=== PATIENT | female | born 1955 ===

== ENCOUNTER → 2024-12-15 | Emergency (ER) | payer MEDICARE, MEDICAID ==
--- NOTE | 2024-12-15 09:23 | ERN ---
General Chief Complaint: Lower Extremity Pain/Injury Stated Complaint: LEFT LEG PAIN Time Seen by MD: 09:00 Source: patient History of Present Illness Initial Comments 69-year-old female came to ED with complaints of left leg pain. Pain started yesterday and was, severe about 6/10 on a pain scale. Patient took Motrim 800 mg this morning. Patient noticed left leg pain on and off for the last three months. Patient has a history of back surgeries and has neuropathy in both her legs. In the ED she states that she no longer has any pain. Her vitals look stable except for elevated blood pressure. Patient denies any leg swelling, trauma, falls, fever, abdominal pain. Patient has a past medical history of hypertension and hyperlipidemia. Allergies: Coded Allergies: No Known Drug Allergies (Unverified Allergy, Unknown, 12/15/24) Past Medical History Past Medical History: High Cholesterol, Hypertension, Other Medical History Other: back pain Past Surgical History: Other, Surgical History Other: back sx ROS Dictation ROS Dictation CONSTITUTIONAL: No chills, no fever, no weakness, no diaphoresis, no malaise. HEAD/FACE: No signs of trauma. EENT: No eye pain, no blurred vision, no tearing, no double vision, no ear pain, no ear discharge, no nose pain, no nasal congestion, no throat pain, no throat swelling, no mouth pain. RESPIRATORY: No cough, no orthopnea, no SOB, no stridor, no wheezing. CARDIOVASCULAR: No chest pain, no edema, no palpitations, no syncope. GASTROINTESTINAL/ABDOMINAL: No abdominal pain, no constipation, no diarrhea, no nausea, no vomiting. GENITOURINARY: No abnormal discharge, no dysuria, no frequent urination, no h ematuria. No complaints of pain in the genitals. MUSCULOSKELETAL: chronic back pain, no gout, no joint pain, no joint swelling, no muscle pain, no muscle stiffness, no neck pain. INTEGUMENTARY: No change in color, no change in hair/nails, no dryness, no lesion, no lumps, no rash. NEUROLOGICAL/PSYCH: No anxiety, not depressed, no emotional problem, no headache, no numbness, no pre-existing deficit, no history of seizures, no tremors, no weakness. HEMATOLOGIC/LYMPHATIC: Not anemic, no history of blood clots, no apparent bleeding, no bruising, glands not swollen. All Systems Negative, Except as Noted. Physical Exam Physical Exam Dictation Physical Exam Dictation VITAL SIGNS: Reviewed. GENERAL APPEARANCE: Alert, oriented x3 HEAD AND FACE: Non-traumatic. EYES: PERRL, pink conjunctivas, eyelid no trauma, anterior chamber clear. EARS: Pinnas intact and no signs of trauma or erythema. Ear canals clear and no discharge. TMs no erythema. NOSE: No discharge, no bleeding. OROPHARYNX: Mouth normal, teeth no caries, tongue pink. Pharynx clear, no erythema. Tonsils no exudates, no abscesses noted. Mucous membrane moist. NECK: Supple, non-tender, no thyromegaly, no masses, no JVD, no bruits. BREAST: Deferred. CHEST: No tenderness, no crepitus, no paradoxical movement, no retractions. LUNGS: Clear, well-ventilated, symmetric, no rales, no wheezing, no rhonchi, no stridor, good breath sounds bilaterally. HEART: Regular rate, regular rhythm, no murmur, no gallops. VASCULAR: No peripheral edema. ABDOMEN: Soft, positive bowel sounds, nondistended, no guarding, nontender, no rebound, no masses no hepatomegaly, no splenomegaly, no Cat's sign, no hernias. RECTAL: Deferred. GENITAL: Deferred. NEUROLOGICAL: Normal speech, gross motor function intact, gross sensory function intact. MUSCULOSKELETAL: Neck nontender, full range of motion, back nontender, full range of motion. EXTREMITIES: Nontender, full range of motion, varicose veins on the left thigh. SKIN: Color pink, dry, no turgor, no rash, no lacerations, no abrasions, no contusions. LYMPHATICS: Deferred. Results Laboratory and Microbiology Lab and Micro Result Laboratory Tests Test 12/15/24 09:27 White Blood Count 6.1 K/uL (4.8-10.8) Red Blood Count 3.67 MIL/uL (4.00-5.50) L Hemoglobin 11.5 g/dL (12.0-16.0) L Hematocrit 34.5 % (36-48) L Mean Corpuscular Volume 94.0 fL (79-99) Mean Corpuscular Hemoglobin 31.3 pg (27.0-33.0) Mean Corpuscular Hemoglobin Concent 33.3 g/dL (32.0-36.0) Red Cell Distribution Width 12.5 % (11.0-15.5) Platelet Count 151 K/uL (130-400) Mean Platelet Volume 11.9 fL (7.5-10.5) H Immature Granulocyte % (Auto) 0.2 % (0-1) Neutrophils (%) (Auto) 61.4 % (40.0-77.0) Lymphocytes (%) (Auto) 25.2 % (21.0-51.0) Monocytes (%) (Auto) 9.7 % (3.0-13.0) Eosinophils (%) (Auto) 2.8 % (0.0-8.0) Basophils (%) (Auto) 0.7 % (0.0-5.0) Neutrophils # (Auto) 3.7 K/uL (1.8-7.7) Lymphocytes # (Auto) 1.5 K/uL (1.0-4.8) Monocytes # (Auto) 0.6 K/uL (0.1-1.0) Eosinophils # (Auto) 0.17 K/uL (0.00-0.70) Basophils # (Auto) 0.04 K/uL (0.00-0.20) Absolute Immature Granulocyte (auto 0.01 K/uL (0-1) Nucleated Red Blood Cells 0.0 % (0.0-0.19) Sodium Level 142 mmol/L (136-145) Potassium Level 3.7 mmol/L (3.5-5.1) Chloride Level 107 mmol/L (101-111) Carbon Dioxide Level 30 mmol/L (21-32) Blood Urea Nitrogen 13 mg/dL (7-18) Creatinine 0.6 mg/dL (0.5-1.0) Glomerular Filtration Rate Calc 96 mL/min (>90) Random Glucose 90 mg/dL (70-105) Total Calcium 8.4 mg/dL (8.5-10.1) L Labs Reviewed?: Yes EKG/XRAY/US/CT/MRI Ultrasound Comment [place] [address] [place] [address] IMAGING REPORT Signed PATIENT: SAILAJA MACHUCA MR#: [id number] : 1955 SEX: F AGE: 69 LOCATION: [facility] ORDER 7 STATUS: REG ER REPORT#: [id number] SERVICE 4 REASON: Varicose veins ORDERING PHYSICIAN: JOE BRASWELL MD PROCEDURE: VENOUS SHAREE - US VENOUS DOPPLER BILATERAL EXAM: US for Deep Venous Thrombosis, bilateral Lower Extremity. CLINICAL HISTORY: Leg Pain and Swelling TECHNIQUE: Real-time ultrasound scan of the veins of the bilateral lower extremity with color Doppler flow, spectral waveform analysis and compression. COMPARISON: None provided. FINDINGS: DEEP VEINS: The common femoral, superficial femoral, and popliteal veins are echolucent and compressible. There is normal color Doppler flow throughout. The visualized calf veins appear patent. SOFT TISSUES: No popliteal fossa cyst or other abnormalities. IMPRESSION: No deep venous thrombosis evident on bilateral lower extremity examination. /[place] DICTATED BY: JR ROMAN Jr., MD DATE: 12/15/24 111 ELECTRONICALLY SIGNED BY: JR ROMAN Jr., MD DATE: 12/15/24 1113 [facility] Chief complaint: Patient presented to the ED with complaints of thigh pain that started yesterday night. In the ED she says that she does not feel any pain anymore. Past medical history: Patient has a past medical history of hypertension, hyperlipidemia, and chronic back pain. She has a history of surgeries for her chronic back pain. Vitals: In the ED her vitals look stable except for elevated blood pressure 180 systolic. Physical examination: Physical examination revealed varicose veins on her left thigh but otherwise unremarkable. Review of systems: Review of systems in the ED was unremarkable. Laboratory results: Laboratory results were within reference range. Imaging results: Doppler ultrasound of her bilateral legs revealed no DVT and was unremarkable Differential: Musculoskeletal pain, sciatica, varicose veins. Assessment and plan: Patient was assessed for deep vein thrombosis, the laboratory results including CBC and BMP were unremarkable. Venous ultrasound of bilateral legs reveal no deep vein thrombosis and was otherwise unremarkable. The pain was not reproducible on leg manipulation which ruled out sciatica. Based on the review of laboratory results, imaging results and physical examination we can concluded that the patient was suffering from chronic musculoskeletal pain which was exacerbated yesterday night. Our findings thereby suggest that the patient does not warrant admission at this current time, she will be discharged today from the ED advised to follow up with her PCP for management of her chronic pain issues. ED Course Orders Procedure Category Date Status Time Cbc With Differential LAB 12/15/24 Complete 09:15 Us Venous Doppler US 12/15/24 Resulted Bilateral 09:15 Basic Metabolic Panel LAB 12/15/24 Complete 09:15 Vital Signs Date Time Temp Pulse Resp B/P (MAP) Pulse Ox O2 Delivery O2 Flow Rate FiO2 12/15/24 08:54 97.5 65 18 184/95 98 Room Air* 0 21 12/15/24 08:51 97.5 65 18 184/95 98 Room Air 0 DX & DISP Disposition: Discharge Departure Impression: Primary Impression: Thigh pain, musculoskeletal Additional Impression: Varicose veins of left thigh Condition: Stable Additional Instructions: You presented to the ED with complaints of leg pain that was present yesterday. We performed the laboratory tests and ultrasound of the veins of your legs to assess for serious issues. We have reviewed the results of the tests that we performed on you and concluded that your pain is most likely musculoskeletal in nature. We have reviewed your medications to assess for secondary causes of pain which did not reveal any significant findings. 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 Referrals: MEHRDAD ERVIN MD (PCP) Time of Disposition: 10:48 JOE BRASWELL MD Dec 15, 2024 09:23 MIRTA MALIK MD Dec 15, 2024 10:31 JAMA SCHWARTZ MD Dec 15, 2024 10:51
[2024-12-15 09:32] LABS: IMMATURE GRANULOCYTE ABSOLUTE 0.01 K/uL (0-1); NUCLEATED RED BLOOD CELLS 0.0 % (0.0-0.19); PLATELET COUNT (AUTO) 151 K/uL (130-400); RED BLOOD CELL COUNT(AUTO) 3.67 MIL/uL (4.00-5.50); RED CELL DISTRIBUTION WIDTH 12.5 % (11.0-15.5); WHITE BLOOD COUNT (AUTO) 6.1 K/uL (4.8-10.8)
[2024-12-15 09:39] LABS: CREATININE 0.6 mg/dL (0.5-1.0); GLOMERULAR FILTR. RATE CALC 96.0 mL/min (>90); GLUCOSE,RANDOM 90.0 mg/dL (70-105); SODIUM SERUM 142.0 mmol/L (136-145); UREA NITROGEN, BLOOD 13.0 mg/dL (7-18)
[2024-12-15 10:10] VITALS: BP 160/79; PULSE 67; RESP 20; TEMP 97.3; O2SAT 99
--- NOTE | 2024-12-15 10:14 | HMCIMG ---
EXAM: US for Deep Venous Thrombosis, bilateral Lower Extremity. CLINICAL HISTORY: Leg Pain and Swelling TECHNIQUE: Real-time ultrasound scan of the veins of the bilateral lower extremity with color Doppler flow, spectral waveform analysis and compression. COMPARISON: None provided. FINDINGS: DEEP VEINS: The common femoral, superficial femoral, and popliteal veins are echolucent and compressible. There is normal color Doppler flow throughout. The visualized calf veins appear patent. SOFT TISSUES: No popliteal fossa cyst or other abnormalities. IMPRESSION: No deep venous thrombosis evident on bilateral lower extremity examination. /[place]
== END ==
LOC: EDH 08:47
DX: M79.652 Pain in left thigh (principal); I83.92 Asymptomatic varicose veins of left lower extremity; E78.00 Pure hypercholesterolemia, unspecified; I10 Essential (primary) hypertension
CPT/HCPCS: 36415; 80048; 85025; 93970; 99284